=== PATIENT | male | born 1990 | race Caucasian/White ===

== ENCOUNTER 2018-01-05 02:37 | Emergency (ER) | payer SELFPAY ==
[~2018-01-05] VITALS: Ht 177.8 cm; Wt 90.7 kg
--- OUTSIDE RECORDS SUMMARY | 2018-01-05 02:49 | XMS REPORT ---
Author Author Alessia Goodman Organization [employer] Address Unknown Phone Unavailable Care Team Providers Care Tuckpointer Name Role Phone Alessia Goodman CP Unavailable Allergies, Adverse Reactions, Alerts Substance Reaction Event Type N.K.D.A. Info Not Available Non Drug Allergy Problems Problem Type Condition Code Onset Dates Condition Status Assessment Acute bronchitis J20.9 Active Medications Medication Code System Code Instructions Start Date End Date Status Dosage PredniSONE [facility] [address]-56 10 MG Orally twice a day February 28, 2016 March 03, 2016 2 tablet Azithromycin [facility] [address]-83 250 MG Orally Once a day February 28, 2016 March 04, 2016 2 tablets on the first day, then 1 tablet daily for 4 days Promethazine-Codeine [facility] [address]-28 6.25-10 MG/5ML Orally every 6 hrs PRN cough February 28, 2016 March 05, 2016 5 ml as needed Procedures Procedure Coding System Code Date Office Visit, New Pt., Level 2 CPT-4 58109 February 28, 2016 Vital Signs Date/Time: February 28, 2016 BMI 27.47 Index Weight 197.0 lbs Height 71 in Cardiac Monitoring Heart Rate 72 /min Blood Pressure Diastolic 106 mm Hg Blood Pressure Systolic 150 mm Hg Temperature 98.9 F Pain Scale 0 1-10 Respiratory Rate 12 /min Results No Known Results Summary Purpose [employer] Submission
--- OUTSIDE RECORDS SUMMARY | 2018-01-05 02:49 | XMS REPORT ---
Author Author Jasmeet Saucedo Organization [employer] Address Unknown Phone Unavailable Care Team Providers Care Agricultural Economics Teacher Name Role Phone Jasmeet Saucedo CP Unavailable Allergies No Known Allergies Problems No Known Problems Medications No Known Medications Results No Known Results Summary Purpose [employer] Submission
--- OUTSIDE RECORDS SUMMARY | 2018-01-05 02:49 | XMS REPORT ---
Author Author Jasmeet Saucedo Organization [employer] Address Unknown Phone Unavailable Care Team Providers Care Mixing Operator Name Role Phone Jasmeet Saucedo CP Unavailable Allergies No Known Allergies Problems No Known Problems Medications No Known Medications Results No Known Results Summary Purpose [employer] Submission
[2018-01-05 03:01] LABS: BILIRUBIN,URINE NEGATIVE (NEGATIVE); CLARITY,URINE CLEAR; COLOR,URINE YELLOW; GLUCOSE, URINE (UA) NEGATIVE (NEGATIVE); KETONES,URINE NEGATIVE (NEGATIVE); LEUKOCYTE ESTERASE ,URINE NEGATIVE (NEGATIVE); NITRITE,URINE NEGATIVE (NEGATIVE); PH,URINE 7 (5-9); PROTEIN,URINE NEGATIVE (NEGATIVE); UROBILINOGEN,URINE NORMAL (NORMAL)
[2018-01-05 03:09] LABS: BACTERIA,URINE NEGATIVE /HPF; SQUAMOUS EPITHELIAL CELL,UR RARE /HPF
[2018-01-05 03:22] LABS: AMPHETAMINE SCREEN, URINE NEGATIVE (NEGATIVE); BARBITURATE SCREEN URINE NEGATIVE (NEGATIVE); BENZODIAZEPINES SCREEN URINE NEGATIVE (NEGATIVE); CANNABINOID SCREEN, URINE POSITIVE (NEGATIVE); COCAINE SCREEN URINE NEGATIVE (NEGATIVE); METHADONE STAT NEGATIVE (NEGATIVE); METHAMPHETAMINE SCREEN URINE S NEGATIVE (NEGATIVE); OPIATE SCREEN URINE NEGATIVE (NEGATIVE); OXYCODONE STAT NEGATIVE (NEGATIVE); PROPOXYPHENE STAT NEGATIVE (NEGATIVE); TRICYCLIC ANTIDEPRESSANTS SCRE NEGATIVE (NEGATIVE)
[2018-01-05 03:42] LABS: BASOPHILS % (AUTO) 0 % (0-10); EOSINOPHILS # (AUTO) 0.1 10^3/uL (0.0-0.3); EOSINOPHILS % (AUTO) 1 % (0-10); HEMATOCRIT 41 % (40-54); HEMOGLOBIN 14.7 G/DL (13.3-17.7); LYMPHOCYTES # (AUTO) 2.8 X 10^3 (1.0-4.0); LYMPHOCYTES % (AUTO) 30 % (12-44); MEAN CORPUSCULAR HEMOGLOBIN 34 PG (25-34); MEAN CORPUSCULAR HGB CONC 36 G/DL (32-36); MEAN CORPUSCULAR VOLUME 94 FL (80-99); MONOCYTES # (AUTO) 1.1 X 10^3 (0.0-1.0); MONOCYTES % (AUTO) 11 % (0-12); NEUTROPHILS # (AUTO) 5.4 X 10^3 (1.8-7.8); NEUTROPHILS % (AUTO) 57 % (42-75); PLATELET COUNT 222 10^3/uL (130-400); RED BLOOD COUNT 4.37 10^6/uL (4.35-5.85); RED CELL DISTRIBUTION WIDTH 12.1 % (10.0-14.5); WHITE BLOOD COUNT 9.4 10^3/uL (4.3-11.0)
--- NOTE | 2018-01-05 03:50 | ED General ---
General Chief Complaint: Substance Abuse Stated Complaint: POSS ALCOHOL POISONING,FEELS DEHYDRATED Nursing Triage Note: Patient advises he and his friends had been drinking x 4 days for a bud birthday. He advises that he felt fine this morning when he woke up but now he feels like he cant get his thoughts together. Nursing Sepsis Screen: No Definite Risk Source of Information: Patient History of Present Illness Date Seen by Provider: January 05, 2018 Time Seen by Provider: 02:57 Initial Comments PT ARRIVES VIA POV STATES "I JUST FEEL VERY DEHYDRATED AND OUT OF IT" SYMPTOMS ONGOING FOR A FEW HOURS PT STATE HE DRINKS ALCOHOL EVERY DAY--"7-8 BEERS A DAY ON A LIGHT DAY" AND STATES HE DRANK ALOT OVER THE LAST FEW DAYS, ESPECIALLY LAST NIGHT--STATES IN ADDITION TO BEER, HE HAD "2-3 SHOTS" OF HARD LIQUOR AND HAD HALF AND 750 ML BOTTLE OF VODKA LAST PM ( WEDNESDAY NIGHT 01/03/18)--"I GOT REALLY DRUNK" STATES HE VOMITED X 1 LAST PM STATES HE HAS FELT FINE ALL DAY, LAID DOWN AND TOOK A NAP TONIGHT AND WOKE UP A FEW HOURS AGO AND "FELT SUPER OUT-OF-IT AND I CAN'T GATHER MY THOUGHTS" "AND I'VE NOT REALLY BEEN DRINKING MUCH TODAY" HAS BEEN EATING NORMALLY TODAY PT STATES HE HAS "ONLY HAD 3 OR 4 BEERS TODAY AND "A SIP" OF SOMEONE ELSE'S ALCOHOLIC DRINK" HAS BEEN VOIDING A NORMAL AMOUNT NO NAUSEA/VOMITING TODAY, AND NO ABDOMINAL PAIN "AND I'VE GOT A SINUS INFECTION FOR OVER A YEAR AND I HAVE ALOT OF PRESSURE IN MY FACE AND BEHIND MY EYES" --HAS NEVER SOUGHT CARE FOR THIS PROBLEM AND HAS NOT TAKEN ANYTHING FOR SYMPTOMS AND SYMPTOMS ARE NO DIFFERENT NOW THAN THEY HAVE BEEN FOR THE LAST YEAR Allergies and Home Medications Home Medications Amoxicillin/Potassium Clav 1 Each Tablet, 1 EACH PO BID Prescribed by: ROLO WELLS on 01/05/18414 Fluticasone Propionate 9.9 Ml [place].susp, 2 SPRAYS NS BID Prescribed by: ROLO WELLS on 01/05/18414 Loratadine/Pseudoephedrine 1 Each Tab.er.12h, 1 EACH PO BID Prescribed by: ROLO WELLS on 01/05/18414 Methylprednisolone 4 Mg Tab.ds.pk, 4 MG PO UD Prescribed by: ROLO WELLS on 01/05/18 0415 Patient Home Medication List Home Medication List Reviewed: Yes Review of Systems Constitutional: see HPI EENTM: see HPI Respiratory: no symptoms reported Cardiovascular: no symptoms reported Gastrointestinal: see HPI; No abdominal pain Genitourinary: no symptoms reported Musculoskeletal: no symptoms reported Skin: no symptoms reported Psychiatric/Neurological: No Symptoms Reported; Denies Headache, Denies Numbness, Denies Paresthesia, Denies Seizure, Denies Tingling, Denies Weakness Hematologic/Lymphatic: No Symptoms Reported Immunological/Allergic: no symptoms reported Past Cgjymrt-Neceso-Yottsi Hx Patient Social History Alcohol Use: Regular Use (DRINKS AT LEAST 7-8 BEERS DAILY "ON A LIGHT DAY" PER PT, PLUS HEAVY AMOUNTS OF HARD LIQUOR AT TIMES. ) Alcohol Beverage of Choice: Beer Recreational Drug Use: Yes (THC DAILY) Drug of Choice: THC Smoking Status: Current Everyday Smoker (1 PPD) Type Used: Cigarettes (1 PPD) Recent Foreign Travel: No Contact w/Someone Who Travel: No Recent Infectious Disease Expo: No Recent Hopitalizations: No Physical Abuse: No Sexual Abuse: No Seasonal Allergies Seasonal Allergies: No Past Medical History Surgeries: No Respiratory: No Cardiac: No Neurological: No Genitourinary: No Gastrointestinal: No Musculoskeletal: No Endocrine: No HEENT: No Cancer: No Psychosocial: No Nursing Suicide Risk Score: 0 Integumentary: No Blood Disorders: No Physical Exam Vital Signs Vital Signs - First Documented 01/05/18 02:59 Pulse 91 Resp 14 B/P (MAP) 138/93 (108) Pulse Ox 98 O2 Delivery Room Air Capillary Refill : Less Than 3 Seconds General Appearance: No Apparent Distress, WD/WN, Other (STRONG ODOR OF ETOH) HEENT: PERRL/EOMI, TMs Normal, Pharynx Normal, Other (NASAL MUCOSAL EDEMA, CLEAR POST NASAL DRAINAGE. RIGHT FRONTAL SINUS TENDERNESS) Neck: Full Range of Motion, Normal Inspection, Non Tender, Supple Respiratory: Normal Breath Sounds, No Accessory Muscle Use, No Respiratory Distress Cardiovascular: Regular Rate, Rhythm, No Murmur, Normal Peripheral Pulses Gastrointestinal: No Organomegaly, Non Tender, Soft Back: Normal Inspection Extremity: Normal Inspection Neurologic/Psychiatric: Alert, Oriented x3, No Motor/Sensory Deficits, Normal Mood/Affect, federal mediator II-XII Norm as Tested; No Abnormal Cerebellar Tests Skin: Normal Color, Warm/Dry Progress/Results/Core Measures Suspected Sepsis Recent Fever Within 48 Hours: No Infection Criteria Present: None New/Unexplained Altered Menta: No Sepsis Screen: No Definite Risk SIRS Temperature: Pulse: 91 Respiratory Rate: 14 Laboratory Tests 01/05/18 03:30: White Blood Count 9.4 Blood Pressure 138 /93 Mean: 108 Laboratory Tests 01/05/18 03:30: Creatinine 0.91, Platelet Count 222, Total Bilirubin 0.7 Results/Orders Lab Results Laboratory Tests Test 01/05/18 02:54 01/05/18 03:30 Range/Units Urine Color YELLOW Urine Clarity CLEAR Urine pH 7 5-9 Urine Specific [place] 1.005 L 1.016-1.022 Urine Protein NEGATIVE NEGATIVE Urine Glucose (UA) NEGATIVE NEGATIVE Urine Ketones NEGATIVE NEGATIVE Urine Nitrite NEGATIVE NEGATIVE Urine Bilirubin NEGATIVE NEGATIVE Urine Urobilinogen NORMAL NORMAL MG/DL Urine Leukocyte Esterase NEGATIVE NEGATIVE Urine RBC (Auto) NEGATIVE NEGATIVE Urine RBC NONE /HPF Urine WBC NONE /HPF Urine Squamous Epithelial Cells RARE /HPF Urine Crystals NONE /LPF Urine Bacteria NEGATIVE /HPF Urine Casts NONE /LPF Urine Mucus NEGATIVE /LPF Urine Culture Indicated NO Urine Opiates Screen NEGATIVE NEGATIVE Urine Oxycodone Screen NEGATIVE NEGATIVE Urine Methadone Screen NEGATIVE NEGATIVE Urine Propoxyphene Screen NEGATIVE NEGATIVE Urine Barbiturates Screen NEGATIVE NEGATIVE Ur Tricyclic Antidepressants Screen NEGATIVE NEGATIVE Urine Phencyclidine Screen NEGATIVE NEGATIVE Urine Amphetamines Screen NEGATIVE NEGATIVE Urine Methamphetamines Screen NEGATIVE NEGATIVE Urine Benzodiazepines Screen NEGATIVE NEGATIVE Urine Cocaine Screen NEGATIVE NEGATIVE Urine Cannabinoids Screen POSITIVE H NEGATIVE White Blood Count 9.4 4.3-11.0 10^3/uL Red Blood Count 4.37 4.35-5.85 10^6/uL Hemoglobin 14.7 13.3-17.7 G/DL Hematocrit 41 40-54 % Mean Corpuscular Volume 94 80-99 FL Mean Corpuscular Hemoglobin 34 25-34 PG Mean Corpuscular Hemoglobin Concent 36 32-36 G/DL Red Cell Distribution Width 12.1 10.0-14.5 % Platelet Count 222 130-400 10^3/uL Mean Platelet Volume 9.0 7.4-10.4 FL Neutrophils (%) (Auto) 57 42-75 % Lymphocytes (%) (Auto) 30 12-44 % Monocytes (%) (Auto) 11 0-12 % Eosinophils (%) (Auto) 1 0-10 % Basophils (%) (Auto) 0 0-10 % Neutrophils # (Auto) 5.4 1.8-7.8 X 10^3 Lymphocytes # (Auto) 2.8 1.0-4.0 X 10^3 Monocytes # (Auto) 1.1 H 0.0-1.0 X 10^3 Eosinophils # (Auto) 0.1 0.0-0.3 10^3/uL Basophils # (Auto) 0.0 0.0-0.1 10^3/uL Sodium Level 138 135-145 MMOL/L Potassium Level 3.9 3.6-5.0 MMOL/L Chloride Level 103 98-107 MMOL/L Carbon Dioxide Level 20 L 21-32 MMOL/L Anion Gap 15 H 5-14 MMOL/L Blood Urea Nitrogen 10 7-18 MG/DL Creatinine 0.91 0.60-1.30 MG/DL Estimat Glomerular Filtration Rate > 60 BUN/Creatinine Ratio 11 Glucose Level 93 70-105 MG/DL Calcium Level 8.5 8.5-10.1 MG/DL Magnesium Level 2.2 1.8-2.4 MG/DL Total Bilirubin 0.7 0.1-1.0 MG/DL Aspartate Amino Transf (AST/SGOT) 97 H 5-34 U/L Alanine Aminotransferase (ALT/SGPT) 60 H 0-55 U/L Alkaline Phosphatase 50 40-136 U/L Total Protein 6.9 6.4-8.2 GM/DL Albumin 3.7 3.2-4.5 GM/DL Amylase Level 59 25-125 U/L Lipase 70 8-78 U/L Acetaminophen Level < 10 L 10-30 UG/ML Serum Alcohol 145 H <10 MG/DL My Orders Orders - PRISCILLAMARILOUA K DO Saline Lock/Iv-Start (01/05/18 02:57) Monitor-Rhythm Ecg Trace Only (01/05/18 02:57) Acetaminophen (01/05/18 02:57) Alcohol (01/05/18 02:57) Amylase (01/05/18 02:57) Cbc With Automated Diff (01/05/18 02:57) Comprehensive Metabolic Panel (01/05/18 02:57) Drug Screen Stat (Urine) (01/05/18 02:57) Lipase (01/05/18 02:57) Magnesium (01/05/18 02:57) Ua Culture If Indicated (01/05/18 02:57) Vital Signs/I&O 01/05/18 02:59 Pulse 91 Resp 14 B/P (MAP) 138/93 (108) Pulse Ox 98 O2 Delivery Room Air Capillary Refill : Less Than 3 Seconds Blood Pressure Mean: 108 Departure Impression Primary Impression: Alcohol abuse Additional Impressions: Drug abuse Sinusitis Disposition: 01 HOME, SELF-CARE Condition: Stable Departure-Patient Inst. Referrals: NO,LOCAL PHYSICIAN (PCP/Family) Primary Care Physician Patient Instructions: ALCOHOL AND SUBSTANCE ABUSE, Alcohol Abuse and Alcoholism (DC), Drug Abuse and Drug Addiction (DC), Sinusitis, Adult (DC) Add. Discharge Instructions: NO ALCOHOL!! NO DRUGS!!! FOLLOW UP WITH DR OF CHOICE IN 1 WEEK FOR FURTHER CARE All discharge instructions reviewed with patient and/or family. Voiced understanding. Scripts Methylprednisolone (Medrol) 4 Mg Tab.ds.pk 4 MG PO UD, #1 PKG Prov: ROLO WELLS DO 01/05/18 Fluticasone Propionate (Flonase Allergy Relief) 9.9 Ml [place].susp 2 SPRAYS NS BID, #1 SPRAY Prov: ROLO WELLS DO 01/05/18 Loratadine/Pseudoephedrine (Claritin-D 12 Hour Tablet) 1 Each Tab.er.12h 1 EACH PO BID, #20 TAB Prov: ROLO WELLS DO 01/05/18 Amoxicillin/Potassium Clav (Augmentin 875-125 Tablet) 1 Each Tablet 1 EACH PO BID for INFECTION, #40 TAB Prov: ROLO WELLS DO 01/05/18 ROLO WELLS DO January 05, 2018 03:50
[2018-01-05 04:02] LABS: ALANINE AMINOTRANSFERASE 60 U/L (0-55); ALBUMIN 3.7 GM/DL (3.2-4.5); ALKALINE PHOSPHATASE 50 U/L (40-136); AMYLASE 59 U/L (25-125); BILIRUBIN,TOTAL 0.7 MG/DL (0.1-1.0); BUN/CREATININE RATIO 11; CALCIUM 8.5 MG/DL (8.5-10.1); CARBON DIOXIDE 20 MMOL/L (21-32); CHLORIDE 103 MMOL/L (98-107); CREATININE SERUM 0.91 MG/DL (0.60-1.30); GFR ESTIMATED > 60; GLUCOSE 93 MG/DL (70-105); LIPASE 70 U/L (8-78); MAGNESIUM 2.2 MG/DL (1.8-2.4); POTASSIUM 3.9 MMOL/L (3.6-5.0); SODIUM 138 MMOL/L (135-145); TOTAL PROTEIN 6.9 GM/DL (6.4-8.2)
[2018-01-05 04:04] LABS: ACETAMINOPHEN < 10 UG/ML (10-30)
[2018-01-05] MEDS ORDERED: LORA1TAB59 PO (04:15)
[2018-01-05] MEDS ORDERED: FLUT9.9S NS (04:15)
[2018-01-05] MEDS ORDERED: METH4TAB PO (04:15)
[2018-01-05] MEDS ORDERED: AMOX-358 PO (04:15)
[2018-01-05 04:21] VITALS: BP 138/98
== END 2018-01-05 04:22 | disposition home or self-care (01) ==
LOC: EDUNIT# 02:37 → ER 02:44
DX: F10.10 Alcohol abuse, uncomplicated (principal); F12.10 Cannabis abuse, uncomplicated; F17.210 Nicotine dependence, cigarettes, uncomplicated; J32.9 Chronic sinusitis, unspecified; Z95.1 Presence of aortocoronary bypass graft; Z79.52 Long term (current) use of systemic steroids
CPT/HCPCS: 36415; 80053; 80306; 80320; 80329; 81000; 82150; 83690; 83735; 85025; 99283

== ENCOUNTER 2019-05-07 20:00 | Emergency (ER) | payer SELFPAY ==
[~2019-05-07] VITALS: Ht 177 cm; Wt 93.1 kg
[~2019-05-07 20:00] MED LIST: AMOX-358 PO; FLUT9.9S NS; LORA1TAB59 PO; METH4TAB PO
[2019-05-07 21:12] VITALS: BP 135/82
--- NOTE | 2019-05-07 21:12 | NUR ---
Patient ambulatory from room and pulled out his IV. He states he feels better now and wants to leave. he feels he was "having a panic attack". Patient signs AMA form and is made aware of the risks associated with leaving AMA and he aknowledges understanding of risks and takes responsibility for himself. Patient walked out of ER and into lobby without difficulty.
== END 2019-05-07 21:18 | disposition left against medical advice (07) ==
LOC: EDUNIT# 20:00 → ER 20:02
DX: F19.90 Other psychoactive substance use, unspecified, uncomplicated (principal); R42 Dizziness and giddiness; R06.02 Shortness of breath